=== PATIENT | male | born 1975 | race American Indian/Alaskan Native ===

== ENCOUNTER 2018-10-29 17:58 | Emergency (ER) | payer SELFPAY ==
[2018-10-29 18:41] VITALS: RESP 18; TEMP 98
--- NOTE | 2018-10-29 21:22 | ED PDOC ---
Arrival/HPI - General Chief Complaint: Substance Abuse Time Seen by Provider: 10/29/18 18:02 - History of Present Illness Narrative History of Present Illness (Text): 10/29/18 22:03 43M with history of substance abuse presenting to the Emergency Room s/p snorting PCP and being found by EMS. Patient was found sitting on the floor by EMS and admitted to snorting 3 bags of heroin prior to arrival. A more complete HPI is unable to be obtained due to the patient's clinical condition Time/Duration: Prior to Arrival Symptom Onset: Sudden Symptom Course: Unchanged Context: Sitting Past Medical History - Provider Review Nursing Documentation Reviewed: Yes - Travel History Have you recently traveled outside [place] w/in the past 3 mons?: No - Psychiatric Hx Substance Use: Yes - Anesthesia Hx Anesthesia: Yes Hx Anesthesia Reactions: No Hx Malignant Hyperthermia: No Family/Social History - Physician Review Nursing Documentation Reviewed: Yes Family/Social History: Unknown Family HX Smoking Status: Heavy Smoker > 10 Cigarettes Daily Hx Alcohol Use: Yes Frequency of alcohol use: Socially Hx Substance Use: Yes Substance used: heroin Allergies/Home Meds Allergies/Adverse Reactions: Allergies Unobtainable Allergy (Verified 10/29/18 18:01) Review of Systems - Review of Systems Systems not reviewed;Unavailable: Intoxicated Physical Exam Vital Signs Reviewed: Yes Vital Signs Temp Pulse Resp BP Pulse Ox 10/29/18 17:59 98 F 80 18 105/68 96 Temperature: Afebrile Blood Pressure: Normal Pulse: Regular Respiratory Rate: Normal Appearance: Positive for: Well-Appearing, Non-Toxic, Comfortable Mental Status: Positive for: Alert and Oriented X 3 Finger Stick Blood Glucose: 90 - Systems Exam Head: Present: Atraumatic, Normocephalic Respiratory/Chest: Present: Clear to Auscultation, Good Air Exchange. No: Respiratory Distress Cardiovascular: Present: Regular Rate and Rhythm, Normal S1, S2 Abdomen: Present: Normal Bowel Sounds. No: Tenderness, Distention Psychiatric: Present: Other (Intoxicated) Medical Decision Making ED Course and Treatment: 10/29/18 22:06 Impression 43M w/ substance abuse Plan --EtOH level --UDS --Reassess & disposition Progress Notes Patient noted to be sleeping. Signout given to Dr. Dangelo who will resume the patient's care. - Lab Interpretations Lab Results: Lab Results 10/29/18 18:57: POC Glucose (mg/dL) 90 I have reviewed the lab results: Yes Disposition/Present on Arrival - Present on Arrival Any Indicators Present on Arrival: No History of DVT/PE: No History of Uncontrolled Diabetes: No Urinary Catheter: No History of Decub. Ulcer: No History Surgical Site Infection Following: None - Disposition Have Diagnosis and Disposition been Completed?: Yes Diagnosis: Opiate abuse, episodic Disposition: HOME/ ROUTINE Disposition Time: 19:00 Patient Plan: Discharge Condition: GOOD Discharge Instructions (ExitCare): Drug Abuse and Drug Addiction (DC) Referrals: PCP,NO [Primary Care Provider] - Follow up with primary Forms: [employer] (Polish)
--- NOTE | 2018-10-30 03:27 | ED PDOC ---
Physical Exam Vital Signs Temp Pulse Resp BP Pulse Ox 10/29/18 17:59 98 F 80 18 105/68 96 Finger Stick Blood Glucose: 90 Medical Decision Making ED Course and Treatment: 10/29/18 22:00 Case was endorsed to me by Dr Gentile. Patient history of snorting heroin. Patient is awake and responsive when questioned, but sleepy at times, necessitating his being observed in the er until he is sober. Patient currently without any complaints, states he just wants to sleep. 10/30/18 03:27 Patient is awake, alert, and ambulating in the emergency room. Patient states he feels fine and wants to leave. Patient has been strongly advised of the dangers of recreational heroin drug use. - Scribe Statement The provider has reviewed the documentation as recorded by the Scribe Ruiz Romero Provider Scribe Attestation: All medical record entries made by the Scribe were at my direction and personally dictated by me. I have reviewed the chart and agree that the record accurately reflects my personal performance of the history, physical exam, medical decision making, and the department course for this patient. I have also personally directed, reviewed, and agree with the discharge instructions and disposition. Disposition/Present on Arrival - Present on Arrival Any Indicators Present on Arrival: No History of DVT/PE: No History of Uncontrolled Diabetes: No Urinary Catheter: No History of Decub. Ulcer: No History Surgical Site Infection Following: None - Disposition Have Diagnosis and Disposition been Completed?: Yes Diagnosis: Opiate abuse, episodic Disposition: HOME/ ROUTINE Disposition Time: 03:30 Patient Plan: Discharge Condition: GOOD Discharge Instructions (ExitCare): Drug Abuse and Drug Addiction (DC) Referrals: PCP,NO [Primary Care Provider] - Follow up with primary Forms: [employer] (Uzbek)
[2018-10-30 04:14] VITALS: BP 115/70; PULSE 80; O2SAT 99
--- NOTE | 2018-10-30 12:23 | CARD ---
APPROVED REPORT Date of service: 10/29/2018 EKG Measurement Heart [id number] <Conclusion> Normal sinus rhythm Normal ECG
== END 2018-10-30 03:40 | disposition home or self-care (01) ==
LOC: ED 17:58
DX: F11.10 Opioid abuse, uncomplicated (principal); F17.210 Nicotine dependence, cigarettes, uncomplicated
CPT/HCPCS: 82948; 93005; 99283; G0480